=== PATIENT | male | born 1960 | race Caucasian/White ===

== ENCOUNTER → 2023-11-21 10:51 | Outpatient (CLI) | payer BC, SELFPAY ==
--- NOTE | 2023-11-21 10:58 | DI.RAD.S_ITS ---
PROCEDURE: XR ANKLE LT MIN 3V INDICATIONS: LEFT LOWER EXTREMITY EDEMA TECHNIQUE: 3 views of the ankle were acquired. COMPARISON: None. FINDINGS: Bones: Widening of the ankle mortise noted. Dorsal and plantar calcaneal spurs are present. Soft tissues: Diffuse soft tissue swelling is seen about the ankle. IMPRESSION: Widening of the ankle mortise may represent distal tibia-fibula ligament injury. If clinical concern persists, MRI may provide additional diagnostic benefit Dictated by: Delfino Chery M.D. on 11/21/2023 at 15:22 Approved by: Delfino Chery M.D. on 11/21/2023 at 15:27
--- NOTE | 2023-11-21 10:58 | DI.RAD.S_ITS ---
PROCEDURE: XR FOOT LT MIN 3V INDICATIONS: LEFT LOWER EXTREMITY EDEMA TECHNIQUE: 3 views of the foot were acquired. COMPARISON: None. FINDINGS: Bones: Suggestion of avulsion fracture injury to the base of the 5th metatarsal (Vuong fracture). Soft tissues: Diffuse soft tissue swelling. IMPRESSION: Acute fracture to the base of the 5th metatarsal (Vuong fracture) Dictated by: Delfino Chery M.D. on 11/21/2023 at 15:27 Approved by: Delfino Chery M.D. on 11/21/2023 at 15:30
--- NOTE | 2023-11-21 10:58 | DI.US.S_ITS ---
PROCEDURE: US PERIPH VENOUS LOW EXTREM LT INDICATIONS: LEFT LOWER EXTREMITY EDEMA TECHNIQUE: Real-time imaging, as well as color and pulse Doppler interrogation, were performed of the lower extremity deep veins from the inguinal ligament to the popliteal fossa, with documentation of the visualized calf veins. COMPARISON: None. FINDINGS: The common femoral, femoral, popliteal, and the visualized calf veins are normally compressible, and free of intraluminal thrombus. Color and pulse Doppler demonstrate normal phasic intraluminal flow. There is normal augmentation response to distal compression maneuver. IMPRESSION: No findings of lower extremity deep venous thrombosis. Dictated by: Lavelle Mcintyre M.D. on 11/21/2023 at 11:18 Approved by: Lavelle Mcintyre M.D. on 11/21/2023 at 11:18
[2023-11-21 12:52] LABS: Add Manual Diff / Slide Review NO; Basophils Absolute Auto 0 /uL (0-100); Basophils Percent Auto 0.6 % (0-2); Eosinophils Absolute Auto 100 /uL (0-450); Eosinophils Percent Auto 1.3 % (2-4); Hematocrit 43.5 % (41-53); Lymphocytes Absolute Auto 1500 /uL (1100-4500); Lymphocytes Percent Auto 20.8 % (25-40); Mean Corpuscular HGB Conc 34.4 % (30-36); Mean Corpuscular Hemoglobin 30.7 PG (26-34); Mean Corpuscular Volume 89.3 fL (80-100); Monocytes Absolute Auto 600 /uL (0-900); Monocytes Percent Auto 7.4 % (3-14); Neutrophils Absolute Auto 5200 /uL (1500-7000); Neutrophils Percent Auto 69.9 % (50-75); Platelet Count 215 X10^3/uL (150-400); Red Blood Cell Count 4.87 X10^6/uL (4.5-5.9); Red Cell Distribution Width 13.2 % (11.6-14.8); White Blood Cell Count 7.4 X10^3/uL (4.5-11.0)
[2023-11-21 13:13] LABS: Alanine Aminotransferase 20 IU/L (<50); Albumin 4.2 g/dL (3.5-5.0); Albumin Globulin Ratio 1.6 (1.0-2.8); Alkaline Phosphatase 88 U/L (38-126); Aspartate Aminotransferase 24 IU/L (17-59); BUN Creatinine Ratio 13.8 (6-22); Bilirubin Total 0.6 mg/dL (0.2-1.3); Blood Urea Nitrogen 12 mg/dL (9-20); Calcium 9.1 mg/dL (8.4-10.2); Carbon Dioxide 27 mmol/L (22-32); Chloride 105 mmol/L (98-107); Estimated Glomerular Filt Rate > 60 mL/min (>60); Globulin 2.6 g/dL (1.7-4.1); Glucose 104 mg/dL (80-110); HEMOLYSIS < 15 (0-50); Potassium 4.4 mmol/L (3.4-5.1); Sodium 139 mmol/L (137-145); Total Protein 6.8 g/dL (6.3-8.2); Uric Acid 5.7 mg/dL (3.5-8.5)
== END ==
PROVIDERS: PCP Family Medicine; Referring Provider Family Medicine; Visit Provider Family Medicine
DX: S92.352A Displaced fracture of fifth metatarsal bone, left foot, initial encounter for closed fracture (principal); R60.0 Localized edema; M79.672 Pain in left foot; M79.89 Other specified soft tissue disorders
CPT/HCPCS: 36415; 73610; 73630; 80053; 84550; 85025; 93971